=== PATIENT | male | born 1955 | race Asian ===

== ENCOUNTER 2021-03-08 08:56 | Day surgery (SDC) | payer BC ==
[2021-03-04 14:36] VITALS: BMI 29.9
[2021-03-08] MEDS ORDERED: PROPOFOL 20 ML ONE ×3 (10:20)
[2021-03-08 11:14] VITALS: TEMP 98
[2021-03-08 11:19] VITALS: PULSE 65
[2021-03-08 11:47] VITALS: BP 110/74
== END 2021-03-08 11:50 | disposition home or self-care (01) ==
LOC: FASU-ENDO 08:56 → MERGE 10:00 → FASU-ENDO 11:50
PROVIDERS: ATTEND Internal Medicine Gastroenterology
PROC: 0DJD8ZZ Inspection of Lower Intestinal Tract, Via Natural or Artificial Opening Endoscopic (ICD-10-PCS; principal; 2021-03-08 10:37)
DX: Z12.11 Encounter for screening for malignant neoplasm of colon (principal); Z86.010 Personal history of colon polyps; Z83.71 Family history of colonic polyps
CPT/HCPCS: 82962